=== PATIENT | female | born 1995 | race African-American/Black ===

== ENCOUNTER 2018-06-28 09:20 | Emergency (ER) | payer OTHER ==
[~2018-06-28] VITALS: Ht 160 cm; Wt 58.5 kg
[2018-06-28 09:42] VITALS: BP 133/71
--- NOTE | 2018-06-28 09:47 | PHYS DOC ---
Past History Additional Past Medical Histor: hydronephrosis Additional Past Surgical Histo: ureteral stents Adult General Chief Complaint Chief Complaint: VAGINAL PROBLEM HPI HPI Patient is a 22-year-old female who presents to the emergency department for evaluation. 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 She states she was seen this past Friday. She was checked for a yeast infection but none was present. She did not have a formal pelvic exam. She states the pain started a few days ago after she took a bath using a special type of oil-based scrub, and is concerned she may have irritated her vaginal area. The pain is limited to the left lateral vaginal wall, and externally. She does admit to having had unprotected sex recently. She states that her vaginal maloney feels somewhat sore. She has not had any vaginal discharge other than being on her menses currently. She does use a menstrual cup, and states she has had some discomfort when inserting it recently. She has not had any pelvic pain , abdominal pain, nausea, or vomiting. There are no alleviating or exacerbating factors to her symptoms, except as noted above. Review of Systems Review of Systems Constitutional: Denies fever or chills [] Eyes: Denies change in visual acuity, redness, or eye pain [] HENT: Denies nasal congestion or sore throat [] Respiratory: Denies cough or shortness of breath [] GI: Denies abdominal pain, nausea, vomiting, bloody stools or diarrhea [] : Denies dysuria or hematuria , denies pelvic pain[] Physical Exam Physical Exam PHYSICAL EXAM: CONSTITUTIONAL: Well developed, well nourished HEAD: normocephalic, atraumatic EENT: PERRL, EOMI. Conjunctivae normal color, sclerae non-icteric; moist mucous membranes. NECK: Supple, non-tender; no meningismus. LUNGS: Lungs CTA, breathing even and unlabored. Normal air movement. HEART: Regular rate and rhythm, no murmur CHEST: No deformity; non-tender ABDOMEN: The abdomen is soft, and non-tender, no masses or bruits. EXTREM: Normal ROM; no deformity, no calf tenderness. Normal pulses palpable in all extremities. There is no pedal edema. SKIN: No rash; no diaphoresis NEURO: Alert; normal speech and cognition; CN's grossly intact; strength grossly intact without focal deficit. BACK: No CVA TTP. GENITOURINARY: Normal external genitalia, without any skin lesions, scratches, or any abnormal abrasions. There is a small amount of vaginal blood present, without any other cervical or vaginal discharge. The cervix appears normal. There is no cervical motion tenderness. There is no uterine or adnexal tenderness. Exam was performed in the presence of the patient's nurse, Shanta. Current Patient Data Lab Results WET PREP Final YEAST PRESENT TRICHOMONAS NONE SEEN CLUE CELLS NONE SEEN ALTERED CORA ALTERED CORA PRESENT SUGGESTIVE OF BACTERIAL VAGINOSIS WBCS MODERATE RBCS MANY SQUAMOUS EPS OCCASIONAL EKG EKG [] Radiology/Procedures Radiology/Procedures [] Course & Med Decision Making Course & Med Decision Making Pertinent Lab studies reviewed. (See chart for details) [10:15 AM: The patient's symptoms are consistent with a local vaginal irritation. There is no evidence at this point of STDs, although GC chlamydia testing is pending. I discussed using alternate methods of hygiene during this menstrual cycle, and the importance of close follow-up with gynecology as an outpatient if symptoms persist. We discussed return precautions.] Dragon Disclaimer Dragon Disclaimer This electronic medical record was generated, in whole or in part, using a voice recognition dictation system. Departure Departure: Impression: Primary Impression: Vaginitis Disposition: HOME, SELF-CARE Condition: STABLE Referrals: NON,STAFF (PCP) Patient Instructions: Bacterial Vaginosis, Vaginitis, [id number] Scripts Metronidazole (FLAGYL) 500 Mg Tablet 1 TAB PO BID, #14 TAB Prov: AR MORATAYA MD 06/28/18 Fluconazole (DIFLUCAN) 150 Mg Tablet 1 TAB PO ONCE, #2 TAB 1 Refill Repeat in 2-3 days if symptoms persist Prov: AR MORATAYA MD 06/28/18 AR MORATAYA MD Jun 28, 2018 09:47
[2018-06-28] MEDS ORDERED: KETOROLAC 60 MG/2 ML VIAL. IM ONE ×2 (10:15→10:20)
[2018-06-28 10:38] LABS: COLOR,URINE YELLOW
[2018-06-28 10:39] LABS: BILIRUBIN,URINE NEG (NEG); CLARITY,URINE CLEAR; GLUCOSE,URINE NEG (NEG)
[2018-06-28 10:40] LABS: NITRITE,URINE NEG (NEG); UROBILINOGEN,URINE 0.2 mg/dL (0.2 mg/dL)
[2018-06-28] MEDS ORDERED: FLUC150T PO (10:48)
[2018-06-28] MEDS ORDERED: METR500T PO (10:48)
[2018-06-30 15:10] LABS: CHLAMYDIA PROBE Negative (Negative)
== END 2018-06-28 11:04 | disposition home or self-care (01) ==
LOC: ER 09:20
DX: N76.0 Acute vaginitis (principal)
CPT/HCPCS: 36415; 81003; 81025; 87491; 87591; 96372; 99284; J1885; Q0111

== ENCOUNTER 2018-10-18 21:14 | Emergency (ER) | payer OTHER ==
[~2018-10-18] VITALS: Ht 162.6 cm; Wt 59.4 kg
[~2018-10-18 21:14] MED LIST: FLUC150T PO; METR500T PO
--- NOTE | 2018-10-18 21:41 | PHYS DOC ---
Past History Past Medical History: No Pertinent History Additional Past Medical Histor: hydronephrosis Past Surgical History: No Surgical History Additional Past Surgical Histo: ureteral stents Alcohol Use: None Drug Use: None Adult General Chief Complaint Chief Complaint: FLANK PAIN [facility] HPI 23-year-old female presents with a six-day history of left-sided flank pain. The patient is also had increased urinary frequency and dysuria for the last 2- 3 days. Patient has a history of ureter narrowing with a stent placed this last summer for 6 weeks. It was then removed. She has not had stones, just iatrogenic blockages. Her back pain has been cramping and only on the left side. It feels similar to her previous kidney problems. She denies fever or chills. Review of Systems Review of Systems Constitutional: Denies fever or chills [] Eyes: Denies change in visual acuity, redness, or eye pain [] HENT: Denies nasal congestion or sore throat [] Respiratory: Denies cough or shortness of breath [] Cardiovascular: No additional information not addressed in HPI [] GI: Denies abdominal pain, nausea, vomiting, bloody stools or diarrhea [] : Dysuria and increased urinary frequency[] Musculoskeletal: Left flank pain[] Integument: Denies rash or skin lesions [] Neurologic: Denies headache, focal weakness or sensory changes [] Endocrine: Denies polyuria or polydipsia [] All other systems were reviewed and found to be within normal limits, except as documented in this note. Allergies Allergies Allergies Coded Allergies Type Severity Reaction Last Updated Verified Penicillins Allergy Unknown 06/28/18 Yes hydrocodone Allergy Unknown 06/28/18 Yes latex Allergy Unknown 06/28/18 Yes oxycodone Allergy Unknown 06/28/18 Yes Physical Exam Physical Exam Constitutional: Well developed, well nourished, no acute distress, non-toxic appearance. [] HENT: Normocephalic, atraumatic, bilateral external ears normal, oropharynx moist, no oral exudates, nose normal. [] Eyes: PERRLA, EOMI, conjunctiva normal, no discharge. [] Neck: Normal range of motion, no tenderness, supple, no stridor. [] Cardiovascular:Heart rate regular rhythm, no murmur [] Lungs & Thorax: Bilateral breath sounds clear to auscultation [] Abdomen: Bowel sounds normal, soft, no tenderness, no masses, no pulsatile masses. [] Skin: Warm, dry, no erythema, no rash. [] Back: Left sided CVA tenderness. [] Extremities: No tenderness, no cyanosis, no clubbing, ROM intact, no edema. [] Neurologic: Alert and oriented X 3, normal motor function, normal sensory function, no focal deficits noted. [] Psychologic: Affect normal, judgement normal, mood normal. [] EKG EKG [] Radiology/Procedures Radiology/Procedures [] Impressions: CT abdomen and pelvis without contrast HISTORY: Left flank pain CT scan of the abdomen and pelvis was done without contrast. Lung bases are clear. A liver lesion is not identified. There is no calcified gallstone. Spleen and adrenal glands are normal. Pancreas appears normal. There is no intrarenal calculi. There is a dilated renal pelvis on the left but the ureter is not dilated. A definite ureteral calculus is not identified. Bowel pattern is normal. Uterus and ovaries are normal. Appendix is not definitively identified. There is no free fluid in the pelvis. There is moderate stool in the colon. IMPRESSION: 1. Mildly dilated renal pelvis on the left. 2. No renal or ureteral or ureteral calculus noted. 3. Appendix is not identified. 4. No bowel obstruction or other acute finding in the abdomen. Electronically signed by: David Machado MD (10/18/2018 10:47 PM) [id number] DICTATED AND SIGNED BY: DAVID MACHADO MD DATE: 10/18/18 2242 CC: ALISA WICK DO; ANAID,STAFF Course & Med Decision Making Course & Med Decision Making Pertinent Labs and Imaging studies reviewed. (See chart for details) The patient's labs are unremarkable. Her urinalysis is negative for infection. Her CT scan does show a mildly dilated renal pelvis on the left, but no calculus. The patient has had some vaginal discomfort. We will perform a pelvic exam. Pelvic exam was unremarkable. Her wet prep is negative. GC chlamydia is pending. The patient's pain could be due to the dilation of the renal pelvis. She will follow up with her urologist. She is stable for discharge at this time. [] Dragon Disclaimer Dragon Disclaimer This electronic medical record was generated, in whole or in part, using a voice recognition dictation system. Departure Departure: Referrals: NON,STAFF (PCP) ALISA WICK DO Oct 18, 2018 21:41
[2018-10-18 21:58] LABS: BASO % 1 % (0-3); EOS # 0.1 x10^3/uL (0.0-0.7); EOS % 2 % (0-3); HEMATOCRIT 37.2 % (36.0-47.0); HEMOGLOBIN 12.3 g/dL (12.0-15.5); LYMPH # 1.6 x10^3/uL (1.0-4.8); LYMPH % 42 % (24-48); MEAN CORPUSCULAR HEMOGLOBIN 32 pg (25-35); MEAN CORPUSCULAR HGB CONC 33 g/dL (31-37); MEAN CORPUSCULAR VOLUME 96 fL (79-100); MONO # 0.4 x10^3/uL (0.0-1.1); MONO % 10 % (0-9); NEUT # 1.7 x10^3uL (1.8-7.7); NEUT % 46 % (31-73); PLATELET COUNT 284 x10^3/uL (140-400); RED BLOOD COUNT 3.86 x10^6/uL (3.50-5.40); RED CELL DISTRIBUTION WIDTH 13.2 % (11.5-14.5); WHITE BLOOD COUNT 3.8 x10^3/uL (4.0-11.0)
[2018-10-18 22:25] LABS: BACTERIA,URINE 0 /HPF (0-FEW); BILIRUBIN,URINE NEG (NEG); CLARITY,URINE CLEAR; COLOR,URINE STRAW; GLUCOSE,URINE NEG (NEG); NITRITE,URINE NEG (NEG); RBC,URINE 0 /HPF (0-2); SQUAMOUS EPITHELIAL CELL,UR OCC /LPF; UROBILINOGEN,URINE 0.2 mg/dL (0.2 mg/dL); WBC,URINE OCC /HPF (0-4)
--- NOTE | 2018-10-18 22:51 | RAD ---
CT abdomen and pelvis without contrast HISTORY: Left flank pain CT scan of the abdomen and pelvis was done without contrast. Lung bases are clear. A liver lesion is not identified. There is no calcified gallstone. Spleen and adrenal glands are normal. Pancreas appears normal. There is no intrarenal calculi. There is a dilated renal pelvis on the left but the ureter is not dilated. A definite ureteral calculus is not identified. Bowel pattern is normal. Uterus and ovaries are normal. Appendix is not definitively identified. There is no free fluid in the pelvis. There is moderate stool in the colon. IMPRESSION: 1. Mildly dilated renal pelvis on the left. 2. No renal or ureteral or ureteral calculus noted. 3. Appendix is not identified. 4. No bowel obstruction or other acute finding in the abdomen. Electronically signed by: Octavio Hinson MD (10/18/2018 10:47 PM) [id number]
[2018-10-18 23:10] LABS: ALBUMIN 3.7 g/dL (3.4-5.0); ALBUMIN/GLOBULIN RATIO 0.8 (1.0-1.7); CALCIUM 9.1 mg/dL (8.5-10.1); CREATININE 0.7 mg/dL (0.6-1.0); GFR 124.4; POTASSIUM 3.4 mmol/L (3.5-5.1); TOTAL BILIRUBIN 0.3 mg/dL (0.2-1.0); TOTAL PROTEIN 8.1 g/dL (6.4-8.2)
[2018-10-19 00:40] VITALS: BP 121/70
== END 2018-10-19 00:42 | disposition home or self-care (01) ==
LOC: ER 21:14
DX: N13.30 Unspecified hydronephrosis (principal); R35.0 Frequency of micturition; R30.0 Dysuria; R10.9 Unspecified abdominal pain; Z88.0 Allergy status to penicillin; Z88.5 Allergy status to narcotic agent; Z91.040 Latex allergy status
CPT/HCPCS: 36415; 74176; 80053; 81001; 81025; 85025; 99284; Q0111

== ENCOUNTER 2019-10-18 13:45 | Emergency (ER) | payer OTHER ==
[~2019-10-18] VITALS: Ht 162.6 cm; Wt 59.4 kg
[2019-10-18 14:56] LABS: INFLUENZA A PATIENT NEGATIVE (NEGATIVE); INFLUENZA B PATIENT NEGATIVE (NEGATIVE)
[2019-10-18 14:58] VITALS: BP 113/49
[2019-10-18 15:02] LABS: BACTERIA,URINE 0 /HPF (0-FEW); BILIRUBIN,URINE NEG (NEG); CLARITY,URINE CLEAR; COLOR,URINE YELLOW; GLUCOSE,URINE NEG (NEG); NITRITE,URINE NEG (NEG); RBC,URINE RARE /HPF (0-2); SQUAMOUS EPITHELIAL CELL,UR MOD /LPF; UROBILINOGEN,URINE 0.2 mg/dL (0.2 mg/dL); WBC,URINE OCC /HPF (0-4)
[2019-10-18] MEDS ORDERED: SCOP1PAT11 TP (15:13)
--- NOTE | 2019-10-18 15:16 | PHYS DOC ---
Adult General Chief Complaint Chief Complaint Vertigo HPI HPI 24 years old female presented emergency department with vertigo patient stated that she was at [facility] and when she got off the cruise ship , he started experiencing vertigo every time she walks described as the room spinning associated with nausea no vomiting no diarrhea no urgency no frequency no hematuria no fever no chills no abdominal pain no back pain Review of Systems Review of Systems Constitutional: Denies fever or chills [] Eyes: Denies change in visual acuity, redness, or eye pain [] HENT: Denies nasal congestion or sore throat [] Respiratory: Denies cough or shortness of breath [] Cardiovascular: No additional information not addressed in HPI [] GI: Denies abdominal pain, nausea, vomiting, bloody stools or diarrhea [] : Denies dysuria or hematuria [] Musculoskeletal: Denies back pain or joint pain [] Integument: Denies rash or skin lesions [] Neurologic: Denies headache, focal weakness or sensory changes [] Endocrine: Denies polyuria or polydipsia [] All other systems were reviewed and found to be within normal limits, except as documented in this note. Allergies Allergies Allergies Coded Allergies Type Severity Reaction Last Updated Verified Penicillins Allergy Unknown 06/28/18 Yes hydrocodone Allergy Unknown 06/28/18 Yes latex Allergy Unknown 06/28/18 Yes oxycodone Allergy Unknown 06/28/18 Yes Physical Exam Physical Exam Constitutional: Well developed, well nourished, no acute distress, non-toxic appearance. [] HENT: Normocephalic, atraumatic, bilateral external ears normal, oropharynx moist, no oral exudates, nose normal. [] Eyes: PERRLA, EOMI, conjunctiva normal, no discharge. [] Neck: Normal range of motion, no tenderness, supple, no stridor. [] Cardiovascular:Heart rate regular rhythm, no murmur [] Lungs & Thorax: Bilateral breath sounds clear to auscultation [] Abdomen: Bowel sounds normal, soft, no tenderness, no masses, no pulsatile masses. [] Skin: Warm, dry, no erythema, no rash. [] Back: No tenderness, no CVA tenderness. [] Extremities: No tenderness, no cyanosis, no clubbing, ROM intact, no edema. [] Neurologic: Alert and oriented X 3, normal motor function, normal sensory function, no focal deficits noted. [] Psychologic: Affect normal, judgement normal, mood normal. [] Current Patient Data Vital Signs Vital Signs Date Time Temp Pulse Resp B/P (MAP) Pulse Ox O2 Delivery O2 Flow Rate FiO2 10/18/19 14:58 98.6 68 16 98 Room Air Lab Results Laboratory Tests Test 10/18/19 14:12 Urine Collection Type Unknown Urine Color Yellow Urine Clarity Clear Urine pH 7.0 Urine Specific Curtis 1.015 Urine Protein Neg (NEG-TRACE) Urine Glucose (UA) Neg mg/dL (NEG) Urine Ketones (Stick) Neg mg/dL (NEG) Urine Blood Neg (NEG) Urine Nitrite Neg (NEG) Urine Bilirubin Neg (NEG) Urine Urobilinogen Dipstick 0.2 mg/dL (0.2 mg/dL) Urine Leukocyte Esterase Neg (NEG) Urine RBC Rare /HPF (0-2) Urine WBC Occ /HPF (0-4) Urine Squamous Epithelial Cells Mod /LPF Urine Bacteria 0 /HPF (0-FEW) Influenza Type A (Rapid) Negative (NEGATIVE) Influenza Type B (Rapid) Negative (NEGATIVE) EKG EKG [] Radiology/Procedures Radiology/Procedures [] Course & Med Decision Making Course & Med Decision Making Pertinent Labs and Imaging studies reviewed. (See chart for details) [] Final Impression Final Impression [] Problems: (1) Vertigo Dragon Disclaimer Dragon Disclaimer This electronic medical record was generated, in whole or in part, using a voice recognition dictation system. RAE JOYCE MD Oct 18, 2019 15:16
== END 2019-10-18 15:23 | disposition home or self-care (01) ==
LOC: ER 13:47
DX: R42 Dizziness and giddiness (principal); R11.0 Nausea; Z88.0 Allergy status to penicillin; Z88.5 Allergy status to narcotic agent; Z91.040 Latex allergy status
CPT/HCPCS: 81001; 87804; 99284

== ENCOUNTER 2020-02-14 14:52 | Emergency (ER) | payer OTHER ==
[~2020-02-14] VITALS: Ht 162.6 cm; Wt 55.0 kg
[~2020-02-14 14:52] MED LIST changes: +SCOP1PAT11 TP
[2020-02-14 14:53] VITALS: BP 132/70
[2020-02-14] MEDS ORDERED: DOXY100T PO (16:00)
[2020-02-14] MEDS ORDERED: cefTRIAXone IM 250 MG VIAL IM ONE (16:15)
--- NOTE | 2020-02-14 16:18 | PHYS DOC ---
Past History Past Medical History: No Pertinent History Additional Past Medical Histor: hydronephrosis Past Surgical History: Tonsillectomy Additional Past Surgical Histo: ureteral stents Alcohol Use: None Drug Use: None Adult General Chief Complaint Chief Complaint: PAIN ON URINATION HPI HPI Patient is a [place] female who presents with dysuria and rectal pain after vaginal rectal intercourse 3 days ago. Denies vaginal discharge, dysuria or frequency urgency, burning and bleeding. Denies hemorrhoids. History of STDs with recent change in sex partner. No other acute symptoms or plans. Last menstrual one week ago. [] Review of Systems Review of Systems Review of symptoms as per history of present illness. All other review symptoms are negative. All other systems were reviewed and found to be within normal limits, except as documented in this note. Current Medications Current Medications Current Medications Medications (Trade) Dose Ordered Sig/Rylie Start Time Stop Time Status Last Admin Dose Admin Ceftriaxone Sodium (Rocephin Im) 250 mg 1X ONCE 02/14/20 16:15 02/14/20 16:16 Allergies Allergies Allergies Coded Allergies Type Severity Reaction Last Updated Verified Penicillins Allergy Unknown 06/28/18 Yes hydrocodone Allergy Unknown 06/28/18 Yes latex Allergy Unknown 06/28/18 Yes oxycodone Allergy Unknown 06/28/18 Yes Physical Exam Physical Exam Constitutional: Well developed, well nourished, no acute distress, non-toxic appearance. [] HENT: Normocephalic, atraumatic, bilateral external ears normal, oropharynx moist, no oral exudates, nose normal. [] Eyes: PERRLA, EOMI, conjunctiva normal, no discharge. [] Lungs & Thorax: Bilateral breath sounds clear to auscultation [] Abdomen: Bowel sounds normal, soft, no tenderness, no masses, no pulsatile masses. [] : No discharge, lesions, rectal, no discharge or lesions. [] Current Patient Data Vital Signs Vital Signs Date Time Temp Pulse Resp B/P (MAP) Pulse Ox O2 Delivery O2 Flow Rate FiO2 02/14/20 14:53 98.4 92 16 132/70 (90) 98 Room Air EKG EKG [] Radiology/Procedures Radiology/Procedures [] Course & Med Decision Making Course & Med Decision Making Pertinent Labs and Imaging studies reviewed. (See chart for details) [Urethritis with rectal pain. Rocephin given. Will prescribe doxycycline with instructions to follow-up with health Department for STD results and further t esting.] Keira Disclaimer Keira Disclaimer This electronic medical record was generated, in whole or in part, using a voice recognition dictation system. Departure Departure: Impression: Primary Impression: STD exposure Disposition: HOME, SELF-CARE Condition: STABLE Patient Instructions: Sexually Transmitted Disease, [id number] Additional Instructions: Please take medications as directed and abstain from sexual intercourse pending lab test results. Scripts Doxycycline Hyclate (DOXYCYCLINE HYCLATE) 100 Mg Tablet 1 TAB PO BID, #14 TAB Prov: ALISA KLINE DO 02/14/20 ALISA KLINE DO Feb 14, 2020 16:18
[2020-02-14 16:26] LABS: U PREG PATIENT NEGATIVE (NEG)
[2020-02-15 16:07] LABS: CHLAMYDIA PROBE Negative (Negative)
== END 2020-02-14 16:37 | disposition home or self-care (01) ==
LOC: ER 14:52
DX: Z20.2 Contact with and (suspected) exposure to infections with a predominantly sexual mode of transmission (principal); Z88.0 Allergy status to penicillin; Z88.5 Allergy status to narcotic agent; Z91.040 Latex allergy status
CPT/HCPCS: 36415; 81025; 87491; 87591; 96372; 99283; J0696; Q0111